=== PATIENT | male | born 1950 | race Caucasian/White ===

== ENCOUNTER 2017-03-04 21:42 | Emergency (ER) | payer OTHER ==
[~2017-03-04] VITALS: Ht 175.3 cm; Wt 96.0 kg
[~2017-03-04 21:42] MED LIST: IOHEXOL 350 MG/ML 10 ML VIAL (for RAD DIAG) IVCONTRAST ONE; LOSA25TA31 PO; LOVA20TA PO; TAB-TAB PO
[2017-03-04 22:16] VITALS: BP 137/88; PULSE 77; RESP 16; TEMP 98.9; O2SAT 98
[2017-03-04 22:45] VITALS: BP 140/90; PULSE 66; RESP 17
[2017-03-04] MEDS ORDERED: LACTCAP8 PO (22:56)
[2017-03-04] MEDS ORDERED: COZA25TA PO (22:56)
[2017-03-04] MEDS ORDERED: LOVA20TA PO (22:56)
[2017-03-04] MEDS ORDERED: LACT1CAP18 (22:57)
[2017-03-04] MEDS ORDERED: CO Q10CA (22:57)
[2017-03-04] MEDS ORDERED: [UNRECOGNIZED DRUG - OTHER] (22:57)
[2017-03-04] MEDS ORDERED: HYDROmorphone HCL PF 1 MG/ML VIAL IV PUSH ONE (23:00)
[2017-03-04] MEDS ORDERED: SODIUM CHLORIDE 0.9% FLUSH 10 ML FLUSH IV FLUSH PRN (23:00)
[2017-03-04] MEDS ORDERED: ONDANSETRON HCL 4 MG/2 ML VIAL IVP ONE (23:00)
--- NOTE | 2017-03-04 23:15 | PD ---
HPI Chief Complaint: Abdominal Pain Time Seen by Provider: 22:58 Travel History International Travel<30 days: No Contact w/Intl Traveler<30days: No Traveled to known affect area: No History of Present Illness HPI 66-year-old male presents to the emergency department for 2 days of constipation 6 hours of right lower quadrant abdominal pain and 3 hours of nausea and vomiting. Patient has prior history of diverticulosis with diverticulitis requiring partial colectomy by Dr. Gonzalez several years ago. Patient states pain does not remind him of his diverticulitis. Patient denies fever or chills. Patient's had no dysuria frequency urgency or hematuria. Patient denies history of kidney stones. She denies other abdominal surgery. Patient has history of hypertension and dyslipidemia. Patient is not diabetic. Patient rates pain 8/10 in intensity. Patient is unable to identify exacerbating or alleviating factors. Patient's had no bilious emesis coffee- ground emesis or hematemesis. No report of melena or hematochezia. PFSH Past Medical History Narrative Medical arthritis hypertension dyslipidemia sleep apnea diverticulosis diverticulitis partial colectomy; no tobacco use; nursing notes reviewed Arthritis: Yes Asthma: No Heart Rhythm Problems: No Cancer: No Cardiovascular Problems: No High Cholesterol: No Chest Pain: No Congestive Heart Failure: No COPD: No Cerebrovascular Accident: No Diabetes: No Diminished Hearing: No Endocrine: No Gastrointestinal Disorders: Yes (GERD) GERD: No Glaucoma: No Genitourinary: No Headaches: No Hepatitis: No Hiatal Hernia: No Hypertension: Yes Immune Disorder: No Medical other: Yes (deviated septum) Musculoskeletal: No Neurologic: No Psychiatric: No Reproductive: No Respiratory: Yes (SLEEP APNEA/ NO CPAP) Migraines: No Myocardial Infarction: No Seizures: No Sleep Apnea: Yes Thyroid Disease: No Ulcer: No Tetanus Vaccination: Unknown Influenza Vaccination: Yes Past Surgical History Abdominal Surgery: Yes (COLON RESECTION) AICD: No Appendectomy: No Cardiac Surgery: No Cholecystectomy: No Ear Surgery: No Endocrine Surgery: No Eye Surgery: No Genitourinary Surgery: No Gynecologic Surgery: No Joint Replacement: No Oral Surgery: No Pacemaker: No Thoracic Surgery: No Other Surgery: Yes (right wrist surgery) Social History Alcohol Use: Yes (SOCIALLY 2-3 DRINKS PER WEEK) Tobacco Use: No Substance Use: No Allergies-Medications (Allergen,Severity, Reaction): Coded Allergies: No Known Allergies (Verified , 08/12/14) Reported Meds & Prescriptions Reported Meds & Active Scripts Active Reported [fish crill oil] Co Q 10 (Coenzyme Q10 (Ubidecarenone)) 10 Mg Cap Probiotic (Lactobacillus Combo No.10) 1 Each Capsule DAILY Probiotic (Lactobacillus Acidophilus) 1 Cap Cap 2 Cap PO TIDAC Lovastatin 20 Mg Tab 20 Mg PO HS Cozaar (Losartan Potassium) 25 Mg Tab 25 Mg PO HS Review of Systems Except as stated in HPI: all other systems reviewed are Neg Physical Exam Narrative GENERAL: Well-developed well-nourished male in no acute distress no respiratory distress SKIN: Warm and dry. HEAD: Normocephalic. EYES: No scleral icterus. No injection or drainage. NECK: Supple, trachea midline. No JVD or lymphadenopathy. CARDIOVASCULAR: Regular rate and rhythm without murmurs, gallops, or rubs. RESPIRATORY: Breath sounds equal bilaterally. No accessory muscle use. GASTROINTESTINAL: Abdomen soft, non-tender, nondistended. MUSCULOSKELETAL: No cyanosis, or edema. BACK: Nontender without obvious deformity. No CVA tenderness. Data Data Last Documented VS Vital Signs Date Time Temp Pulse Resp B/P (MAP) Pulse Ox O2 Delivery O2 Flow Rate FiO2 03/04/17 22:45 66 17 140/90 (107) 03/04/17 22:16 98.9 98 Orders Orders Complete Blood Count With Diff (03/04/17 22:58) Comprehensive Metabolic Panel (03/04/17 22:58) Urinalysis - C+S If Indicated (03/04/17 22:58) Ct Abd/Pel W Iv Contrast(Rout) (03/04/17 22:58) Iv Access Insert/Monitor (03/04/17 22:58) Ecg Monitoring (03/04/17 22:58) Oximetry (03/04/17 22:58) Ondansetron Inj (Zofran Inj) (03/04/17 23:00) Sodium Chloride 0.9% Flush (Ns Flush) (03/04/17 23:00) Hydromorphone Pf Inj (Dilaudid Pf Inj) (03/04/17 23:00) Iohexol 350 Inj (Omnipaque 350 Inj) (03/04/17 00:58) Labs Laboratory Tests Test 03/04/17 23:11 White Blood Count 6.5 TH/MM3 Red Blood Count 4.80 MIL/MM3 Hemoglobin 15.0 GM/DL Hematocrit 45.3 % Mean Corpuscular Volume 94.3 FL Mean Corpuscular Hemoglobin 31.2 PG Mean Corpuscular Hemoglobin Concent 33.0 % Red Cell Distribution Width 13.8 % Platelet Count 181 TH/MM3 Mean Platelet Volume 8.7 FL Neutrophils (%) (Auto) 63.4 % Lymphocytes (%) (Auto) 27.1 % Monocytes (%) (Auto) 6.5 % Eosinophils (%) (Auto) 2.5 % Basophils (%) (Auto) 0.5 % Neutrophils # (Auto) 4.1 TH/MM3 Lymphocytes # (Auto) 1.8 TH/MM3 Monocytes # (Auto) 0.4 TH/MM3 Eosinophils # (Auto) 0.2 TH/MM3 Basophils # (Auto) 0.0 TH/MM3 CBC Comment DIFF FINAL Differential Comment Urine Color JAELYN Urine Turbidity MARKED Urine pH 5.0 Urine Specific [place] 1.028 Urine Protein 30 mg/dL Urine Glucose (UA) NEG mg/dL Urine Ketones NEG mg/dL Urine Occult Blood LARGE Urine Nitrite NEG Urine Bilirubin NEG Urine Leukocyte Esterase NEG Urine RBC 100-200 /hpf Urine Squamous Epithelial Cells 0-5 /hpf Urine Uric Acid Crystals FEW /hpf Urine Amorphous Sediment MOD Urine Bacteria FEW /hpf Urine Mucus MOD /lpf Microscopic Urinalysis Comment CULT NOT INDICATED Blood Urea Nitrogen 18 MG/DL Creatinine 1.10 MG/DL Random Glucose 102 MG/DL Total Protein 7.4 GM/DL Albumin 4.2 GM/DL Calcium Level 8.6 MG/DL Alkaline Phosphatase 55 U/L Aspartate Amino Transf (AST/SGOT) 28 U/L Alanine Aminotransferase (ALT/SGPT) 43 U/L Total Bilirubin 0.4 MG/DL Sodium Level 138 MEQ/L Potassium Level 3.8 MEQ/L Chloride Level 105 MEQ/L Carbon Dioxide Level 23.6 MEQ/L Anion Gap 9 MEQ/L Estimat Glomerular Filtration Rate 67 ML/MIN [facility] Medical Decision Making Medical Screen Exam Complete: Yes Emergency Medical Condition: Yes Medical Record Reviewed: Yes Interpretation(s) CBC & BMP Diagram 03/04/17 23:11 Total Protein 7.4, Albumin 4.2, Calcium Level 8.6, Alkaline Phosphatase 55, Aspartate Amino Transf (AST/SGOT) 28, Alanine Aminotransferase (ALT/SGPT) 43, Total Bilirubin 0.4 Vital Signs Date Time Temp Pulse Resp B/P (MAP) Pulse Ox O2 Delivery O2 Flow Rate FiO2 03/04/17 22:45 66 17 140/90 (107) 03/04/17 22:16 98.9 77 16 137/88 (104) 98 UA: Large blood positive WBCs uric acid crystals; culture not indicated CT abd/pel: FINDINGS: Lung bases are clear. Mild fatty liver. Spleen, adrenals, left kidney and pancreas unremarkable. There is mild right-sided hydronephrosis and perinephric stranding. There is a small 2 mm calculus at the right ureterovesical junction. Minimal dilatation of the right ureter. No gallstones or biliary ductal dilatation. Previous partial sigmoid resection. No bladder calculi. No free air or free fluid. No bowel obstruction. CONCLUSION: 1. Right-sided obstructive uropathy secondary to a 2 mm calculus at the right ureterovesical junction. Mild right hydronephrosis. Nilson Thurman MD on March 05, 2017 at 0:24 Board Certified Radiologist. This report was verified electronically. Differential Diagnosis Abdominal pain renal colic appendicitis abdominal aortic aneurysm Narrative Course IV access obtained specimens collected and sent for resulting patient administered Zofran 4 mg IV along with Dilaudid 0.[address] abdomen and pelvis ordered CBC with automated differential complete metabolic panel values in normal range urinalysis positive blood and red blood cells; CT abdomen and pelvis pending Diagnosis Primary Impression: Ureterolithiasis Additional Impression: Obstructive uropathy Referrals: Urologist call for appointment foloow up with urologist; continuous churn buttermaker MD: Dr Bertrand Patient Instructions: Narcotic given in the ED, General Instructions Additional Instructions: Strain urine Follow-up with urologist Follow-up with your primary care provider Return to the emergency department for any concerns or change in condition Increase fluid hydration Take medications as prescribed as needed for pain Continue chronic medications as chronically prescribed Med/Other Pt SpecificInfo: Prescription(s) given Scripts Ibuprofen (Ibuprofen) 800 Mg Tab 800 MG PO Q8H Y for PAIN GREATER THAN 5, #10 TAB 0 Refills Prov: Nuvia Damon MD 03/05/17 Ondansetron Odt (Zofran Odt) 4 Mg Tab 4 MG SL Q6HR Y for Nausea/Vomiting, #10 TAB 0 Refills Prov: Nuvia Damon MD 03/05/17 Tamsulosin (Flomax) 0.4 Mg Cap 0.4 MG PO HS for Manage Prostate Problems, #30 CAP 0 Refills Prov: Nuvia Damon MD 03/05/17 Oxycodone-Acetaminophen (Percocet) 5-325 mg Tab 1 TAB PO Q6H Y for PAIN, #12 TAB 0 Refills Prov: Nuvia Damon MD 03/05/17 Nuvia Damon MD Mar 04, 2017 23:15
[2017-03-04 23:27] LABS: AUTOMATED NEUTROPHIL # 4.1 TH/MM3 (1.8-7.7); BASOPHIL % 0.5 % (0.0-2.0); EOSINOPHIL # 0.2 TH/MM3 (0-0.4); EOSINOPHIL % 2.5 % (0.0-4.0); HEMATOCRIT 45.3 % (39.0-51.0); HEMO FLAGS DIFF FINAL; LYMPH % 27.1 % (9.0-44.0); LYMPHOCYTE # 1.8 TH/MM3 (1.0-4.8); MEAN CELL VOLUME 94.3 FL (80.0-100.0); MEAN CORPUSCULAR HEMOGLOBIN 31.2 PG (27.0-34.0); MONO % 6.5 % (0.0-8.0); NEUT % 63.4 % (16.0-70.0); PLATELET COUNT 181 TH/MM3 (150-450); RED CELL DISTRIBUTION WIDTH 13.8 % (11.6-17.2); WHITE BLOOD COUNT 6.5 TH/MM3 (4.0-11.0)
[2017-03-04 23:33] LABS: BLOOD, URINE LARGE (NEG); GLUCOSE,URINE NEG (NEG); KETONE, URINE NEG (NEG); NITRITE,URINE NEG (NEG)
[2017-03-04 23:34] LABS: CHLORIDE 105 MEQ/L (98-107); POTASSIUM 3.8 MEQ/L (3.5-5.1); SODIUM (NA) 138 MEQ/L (136-145)
[2017-03-04 23:38] LABS: ANION GAP 9 MEQ/L (5-15); BICARBONATE 23.6 MEQ/L (21.0-32.0); BLOOD UREA NITROGEN 18 MG/DL (7-18)
[2017-03-04 23:41] LABS: ALT (GPT) 43 U/L (12-78); AST (GOT) 28 U/L (15-37); GLOMERULAR FILTRATION RATE 67 ML/MIN (>89)
[2017-03-04 23:42] LABS: TOTAL BILIRUBIN ADULT 0.4 MG/DL (0.2-1.0); URINE COLOR AMBER (YELLW/STRAW)
[2017-03-04 23:43] LABS: MUCUS URINE MOD /lpf (OCC); RBC, URINE 100-200 /hpf (0-3)
[2017-03-04 23:44] LABS: ALKALINE PHOSPHATASE 55 U/L (45-117)
[2017-03-04 23:48] LABS: URIC ACID CRYSTALS, URINE FEW /hpf
[2017-03-04 23:49] LABS: SQUAMOUS EPITHELIAL CELL URINE 0-5 /hpf (0-5)
[2017-03-04 23:50] LABS: BACTERIA, URINE FEW /hpf; COMMENT (UR) CULT NOT INDICATED; CULTURE IF INDICATED CULT NOT INDICATED
[2017-03-04 23:54] VITALS: RESP 17
--- NOTE | 2017-03-05 00:31 | RADRPT ---
EXAM DATE/TIME: 03/04/2017 23:59 [facility] COMPARISON: No previous studies available for comparison. INDICATIONS : Right lower quadrant abdominal pain. Constipation. IV CONTRAST: 100 cc Omnipaque 350 (iohexol) IV ORAL CONTRAST: No oral contrast ingested. RADIATION DOSE: 18.36 CTDIvol (mGy) MEDICAL HISTORY : Hypertension. Gastroesophageal reflux disease. SURGICAL HISTORY : Colon resection. ENCOUNTER: Initial ACUITY: 2 days PAIN SCALE: 8/10 LOCATION: Right lower quadrant TECHNIQUE: Volumetric scanning of the abdomen and pelvis was performed. Using automated exposure control and ad justment of the mA and/or kV according to patient size, radiation dose was kept as low as reasonably achievable to obtain optimal diagnostic quality images. DICOM format image data is available electro nically for review and comparison. FINDINGS: Lung bases are clear. Mild fatty liver. Spleen, adrenals, left kidney and pancreas unremarkable. There is mild right-sided hydronephrosis and perinephric stranding. There is a small 2 mm calculus at the right ureterovesical junction. Minimal dilatation of the right ureter. No gallstones or biliary ductal dilatation. Previous partial sigmoid resection. No bladder calculi. N o free air or free fluid. No bowel obstruction. CONCLUSION: 1. Right-sided obstructive uropathy secondary to a 2 mm calculus at the right ureterovesical junction . Mild right hydronephrosis. Nilson Thurman MD on March 05, 2017 at 0:24 Board Certified Radiologist. This report was verified electronically.
[2017-03-05] MEDS ORDERED: ZOFR4TAB3 SL (00:44)
[2017-03-05] MEDS ORDERED: TAMS5CAP PO (00:44)
[2017-03-05] MEDS ORDERED: PERC5TAB12 PO (00:44)
[2017-03-05] MEDS ORDERED: IBUP800T23 PO (00:44)
[2017-03-05] MEDS ORDERED: KETOROLAC TROMETHAMINE 30 MG/ML (IVP) VIAL IV PUSH ONE (01:00)
[2017-03-05] MEDS ORDERED: TAMSULOSIN HCL 0.4 MG CAP PO ONE (01:00)
== END 2017-03-05 01:31 | disposition home or self-care (01) ==
LOC: PHED 21:42
DX: N13.2 Hydronephrosis with renal and ureteral calculous obstruction (principal); E78.5 Hyperlipidemia, unspecified; G47.30 Sleep apnea, unspecified; I10 Essential (primary) hypertension; K21.9 Gastro-esophageal reflux disease without esophagitis
CPT/HCPCS: 74177; 80053; 81001; 85025; 96374; 96375; 99285; J1170; J1885; J2405; Q9967